=== PATIENT | female | born 1970 | race Caucasian/White ===

== ENCOUNTER 2024-05-09 02:36 | Emergency (ER) | payer OTHER, BC ==
[~2024-05-09] VITALS: Ht 157.5 cm; Wt 45.5 kg
[2024-05-09 04:20] LABS: MEAN CORPUSCULAR HEMOGLOBIN 34.1 pg (27.0-33.0); MEAN CORPUSCULAR HGB CONC 34.1 g/dl (32.0-36.5); PLATELET COUNT, AUTOMATED 328 10^3/uL (150-450); WHITE BLOOD COUNT 12.5 10^3/uL (4.0-10.0)
[2024-05-09 04:34] LABS: AMPHETAMINES LEVEL URINE NEGATIVE (NEGATIVE); BARBITURATES URINE NEGATIVE (NEGATIVE); BENZODIAZEPINES URINE NEGATIVE (NEGATIVE); CANNABINOIDS URINE POSITIVE (NEGATIVE); COCAINE METABOLITE URINE NEGATIVE (NEGATIVE); METHADONE URINE NEGATIVE (NEGATIVE); OPIATES URINE NEGATIVE (NEGATIVE); PHENCYCLIDINE URINE NEGATIVE (NEGATIVE)
[2024-05-09 04:35] LABS: ETHYL ALCOHOL (ETHANOL) 0.006 % (0.000-0.010)
[2024-05-09 04:37] LABS: ALBUMIN 3.9 G/DL (3.2-5.2); ALKALINE PHOSPHATASE 118 U/L (35-104); ALT/SGPT 17 U/L (7.0-40); AST/SGOT 18 U/L (<34); BILIRUBIN,DIRECT 0.2 MG/DL (<0.4); BILIRUBIN,TOTAL 0.7 MG/DL (0.3-1.2); BLOOD UREA NITROGEN 9 MG/DL (9-23); CALCIUM LEVEL 9.7 MG/DL (8.5-10.1); CARBON DIOXIDE LEVEL 25 MMOL/L (20-31); CHLORIDE LEVEL 107 MMOL/L (98-107); CREATININE FOR GFR 0.49 MG/DL (0.55-1.30); GLOMERULAR FILTRATION RATE > 60.0 (>51); GLUCOSE, FASTING 103 MG/DL (60-100); POTASSIUM SERUM 3.8 MMOL/L (3.5-5.1); SODIUM LEVEL 141 MMOL/L (136-145); TOTAL PROTEIN 7.1 G/DL (5.7-8.2)
[2024-05-09 04:39] LABS: THYROID STIMULATING HORMONE 0.819 uIU/ML (0.55-4.78)
[2024-05-09 04:51] LABS: SALICYLATE LEVEL < 3.0 MG/DL (<30)
[2024-05-09] MEDS: IBUPROFEN 400MG TAB PO ONE (04:53)
[2024-05-09] MEDS: ACETAMINOPHEN 325 MG TAB PO ONE (05:00)
[2024-05-09 05:20] VITALS: BP 141/82; TEMP 98; O2SAT 99
[2024-05-09] MEDS ORDERED: ESTR1PAT (08:25)
[2024-05-09] MEDS ORDERED: QUET100T2 (08:25)
[2024-05-09] MEDS ORDERED: SERT50TA29 (08:25)
[2024-05-09] MEDS ORDERED: HYDR-3363 (08:25)
[2024-05-09] MEDS: SERTRALINE HCL 50 MG TAB PO ONE (09:00)
[2024-05-09] MEDS: QUEtiapine FUMARATE 100 MG TAB PO ONE (09:00)
== END 2024-05-09 15:11 | disposition home or self-care (01) ==
LOC: M ED 02:36 → EDBD 02:36 → M ED 15:11
DX: F31.9 Bipolar disorder, unspecified (principal); Z88.5 Allergy status to narcotic agent; Z88.8 Allergy status to other drugs, medicaments and biological substances; Z79.899 Other long term (current) drug therapy